=== PATIENT | female | born 1995 | race Caucasian/White ===

== ENCOUNTER → 2017-08-01 | Outpatient (CLI) | payer OTHER ==
[2017-08-02 11:32] LABS: Paper Wasp IgE <0.35 kU/L (<0.35); Paper Wasp IgE Class CLASS 0; White-Faced Hornet IgE <0.35 kU/L (<0.35); Yellow Jacket IgE Class CLASS 0
== END | disposition home or self-care (01) ==
LOC: LABWHC1 10:30
PROVIDERS: ATTEND Allergy & Immunology
DX: T63.481A Toxic effect of venom of other arthropod, accidental (unintentional), initial encounter (principal)
CPT/HCPCS: 36415; 82785; 86003